=== PATIENT | male | born 1965 | race Caucasian/White ===

== ENCOUNTER → 2017-01-26 | Outpatient (CLI) | payer BC ==
[2014-10-07 16:58] VITALS: BP 118/65
[~2017-01-26] MED LIST: CARV3.12 PO; CRESTOR40 MG PO; HYDR15SO4 PO; LISI2.5T PO; [UNRECOGNIZED DRUG - CODE] MC
--- NOTE | 2017-01-26 14:48 | KCIC ---
PQRS STATEMENT One or more of the following individualized dose reduction techniques were utilized for this study:1.Automated exposure control.2.Adjustment of the mA and/orkVaccording to patient size.3.Use of iterative reconstruction technique CT ABDOMEN/PELVIS Indication: Reason For Study Reason: LT FLANK PAIN, HEMATURIA / Spl. Instructions: / History: Pain for 6 months. Microscopic hematuria. Comparison: None Technique: Multiple contiguous axial images were obtained through the abdomen and pelvis. Coronal reformations were created. Findings: There is no nephrolithiasis, ureteral calculus or hydroureteronephrosis. The urinary bladder is unremarkable. The heart size is normal. The lung bases are clear. Evaluation of the abdominal viscera is limited in the absence of IV contrast. The liver and spleen are normal in size. The gallbladder is nondistended. The pancreas, and adrenal glands are within normal limits. There is no abdominopelvic ascites. Abdominal aorta is normal in caliber. The bowel loops are normal in caliber. The appendix is normal. No destructive osseus lesions are identified. Impression: Negative for obstructive uropathy. Electronically signed by: Carlos Roque (Jan 26, 2017 14:47:36)
== END | disposition home or self-care (01) ==
LOC: KCIC CT 13:56
PROVIDERS: ATTEND Family Medicine
DX: R10.9 Unspecified abdominal pain (principal); R31.9 Hematuria, unspecified
CPT/HCPCS: 74176

== ENCOUNTER → 2017-04-17 | Outpatient (CLI) | payer BC ==
[2014-10-07 16:58] VITALS: BP 118/65
[~2017-04-17] MED LIST changes: +DIAZEPAM 10 MG TABLET. ONE; +HYDROcodone/APAP 5/325MG 1 TAB TABLET ONE; +IOHEXOL 350 MG/ML 100 ML VIAL. ONE; +IOHEXOL 350 MG/ML 50 ML VIAL. ONE; +IV NORMAL SALINE 1000ML BAG 1,000 ML ONE; +LIDOCAINE 1% Multi-Dose 20 ML VIAL. ONE; +MIDAZOLAM HCL/PF 2 MG/2 ML VIAL. ONE; +fentaNYL PF VIAL 100 MCG/2 ML VIAL ONE
--- NOTE | 2017-04-17 16:24 | PCVCINTER ---
APPROVED REPORT Patient Details The patient is a 51 year-old male Event Personnel James Stephenson MD, Brendan Mitchell RT(R), Christine Roach RN, Calvin Pham RT(R)() Procedures Performed Left Heart Catheterization, Selective Right and Left Coronary Angiography Indication Dyspnea, Positive stress test, Pre-op clearance Risk Factors Obesity, Hypercholesterolemia, Last Creatanine 0.8Tobacco History (Current/Recent(w/in 1 year)) Procedure Narrative The patient was brought electively to the Cardiac Catheterization Laboratory and was prepped and draped in a sterile manner. The right femoral was infiltrated with 1% Lidocaine subcutaneous anesthesia. A 6 Fr sheath was inserted into the right femoral artery. Coronary angiography was performed using coronary diagnostic catheters. The right coronary system was accessed and visualized with a Diagnostic catheter. The left coronary system was accessed and visualized with a Diagnostic catheter. The left ventricle was accessed and visualized with a Diagnostic catheter. Left ventricular/Aortic Valve gradient assessed via catheter pullback. Left ventriculogram was performed in JONES projection. Closure device was deployed with a 6 Fr Mynx. Hemostasis was obtained with manual pressure following sheath removal without any complications. The patient tolerated the procedure well and there were no complications associated with the procedure. There was no hematoma. Coronary Angiography The patient's coronary anatomy is right dominant. [place] Artery Percent Stenosis Left Main: 0 % Prox LAD: 0 % Mid/Distal LAD: 0 % Circumflex: 0 % RCA: 0 % Ramus: 0 % Hemodynamics The aortic pressure is 129/77 mmHg with a mean of mmHg. The left ventricular pressure is 124/7 mmHg with a mean of mmHg. The left ventricular end diastolic pressure is 7 mmHg. There was no gradient across the aortic valve upon pullback. Conclusion 1. Normal global and regional systolic funcition. EF 65%. No mitral insufficiency. No aortic stenosis 2. Normal coronary vasculature. Right coronary dominant circulation
== END | disposition home or self-care (01) ==
LOC: PCVCINTER 10:58
PROVIDERS: ATTEND Nuclear Medicine Nuclear Cardiology
DX: R94.39 Abnormal result of other cardiovascular function study (principal); E66.9 Obesity, unspecified; E78.00 Pure hypercholesterolemia, unspecified; Z68.43 Body mass index [BMI] 50.0-59.9, adult; Z72.0 Tobacco use
CPT/HCPCS: 93458; 99152; 99153; C1760; C1769; C1894; J1644; J2250; J3010; J7030; Q9967

== ENCOUNTER → 2018-05-31 | Outpatient (CLI) | payer BC ==
[2018-01-21 17:18] VITALS: BP 114/55
[~2018-05-31] MED LIST changes: +ATOR40TA59 PO; -DIAZEPAM 10 MG TABLET. ONE; -HYDROcodone/APAP 5/325MG 1 TAB TABLET ONE; -IOHEXOL 350 MG/ML 100 ML VIAL. ONE; -IOHEXOL 350 MG/ML 50 ML VIAL. ONE; -IV NORMAL SALINE 1000ML BAG 1,000 ML ONE; -LIDOCAINE 1% Multi-Dose 20 ML VIAL. ONE; -MIDAZOLAM HCL/PF 2 MG/2 ML VIAL. ONE; +PANT20TA2 PO; +SACU1TAB7 PO; +SPIR50TA4 PO; -fentaNYL PF VIAL 100 MCG/2 ML VIAL ONE
--- NOTE | 2018-05-31 16:36 | CARD ---
MR#: [id number] Date of Study: 05/31/2018 Ordering Physician: JUANA WITT, Referring Physician: JUANA WITT Tech: Brandee Stark RDCS APPROVED REPORT EXAM: Two-dimensional and M-mode echocardiogram with Doppler and color Doppler. Other Information Quality : Fair Technically limited study due to breast implants INDICATION Cardiomyopathy Surgery/Intervention ICD/Pacemaker: 2D DIMENSIONS RVDd2.8 (2.9-3.5cm)Left Atrium(2D)3.6 (1.6-4.0cm) IVSd1.5 (0.7-1.1cm)Aortic Root(2D)2.8 (2.0-3.7cm) LVDd4.2 (3.9-5.9cm)LVOT Diameter2.1 (1.8-2.4cm) PWd1.2 (0.7-1.1cm)LVDs2.8 (2.5-4.0cm) FS (%) 30.0 %SV50.7 ml LVEF(%)60.0 (>50%) Aortic Valve AoV Peak Jamal.180.6cm/sAoV VTI30.8cm AO Peak GR.13.1mmHgLVOT Peak Jamal.129.3cm/s AO Mean GR.6mmHgAVA (VMAX)2.37cm2 LEESA (VTI)2.80cm2 Mitral Valve MV E Qeltbbnn03.5cm/sMV DECEL [id number] MV A Vpefupuz02.0cm/sE/A Ratio0.9 Tricuspid Valve TR P. Bsrnxtjb880br/sRAP [id number] TR Peak Gr.07kwHgPFJW41ybKt Pulmonary Vein S1 Keigivgx25.3cm/sD2 Kyrtrohj60.8cm/s LEFT VENTRICLE The left ventricle is normal size. There is mild concentric left ventricular hypertrophy. The left ve ntricular systolic function is normal and the ejection fraction is within normal range. The Ejection Fraction is 55-60%. There is normal LV segmental wall motion. Transmitral Doppler flow pattern is Gra de I-abnormal relaxation pattern. RIGHT VENTRICLE The right ventricle is normal size. The right ventricular systolic function is normal. There is a dev ice lead in the right ventricle. ATRIA The left atrium size is normal. The right atrium size is normal. A device lead is seen in the right a trium consistent with history. The interatrial septum is intact with no evidence for an atrial septal defect or patent foramen ovale as noted on 2-D or Doppler imaging. AORTIC VALVE The aortic valve is calcified but opens well. Doppler and Color Flow revealed no significant aortic r egurgitation. There is no significant aortic valvular stenosis. MITRAL VALVE The mitral valve is normal in structure and function. There is no evidence of mitral valve prolapse. There is no mitral valve stenosis. Doppler and Color-flow revealed trace mitral regurgitation. TRICUSPID VALVE The tricuspid valve is normal in structure and function. Doppler and Color Flow revealed trace tricus pid regurgitation. The PA pressure was estimated at 20 mmHg. There is no tricuspid valve stenosis. PULMONIC VALVE The pulmonic valve is not well visualized. Doppler and Color Flow revealed trace to mild pulmonic edmund vular regurgitation. There is no pulmonic valvular stenosis. GREAT VESSELS The aortic root is normal in size. The ascending aorta is normal in size. The IVC is normal in size a nd collapses <50% with inspiration. PERICARDIAL EFFUSION There is no evidence of significant pericardial effusion. Critical Notification Critical Value: No <Conclusion> The left ventricle is normal size. The left ventricular systolic function is normal. The Ejection Fraction is 55-60%. There is mild concentric left ventricular hypertrophy. There are device leads in the right atrium and right ventricle. There is no significant aortic valvular stenosis. Doppler and Color Flow revealed no significant aortic regurgitation. Doppler and Color-flow revealed trace mitral regurgitation. Doppler and Color Flow revealed trace tricuspid regurgitation. The PA pressure was estimated at 20 mmHg. Signed by : West Ruano MD Electronically Approved : 05/31/2018 16:35:18
== END | disposition home or self-care (01) ==
LOC: ECHO 13:53
PROVIDERS: ATTEND Internal Medicine Cardiovascular Disease
DX: I42.9 Cardiomyopathy, unspecified (principal); I11.0 Hypertensive heart disease with heart failure; I50.9 Heart failure, unspecified; E78.5 Hyperlipidemia, unspecified; E78.00 Pure hypercholesterolemia, unspecified; F17.210 Nicotine dependence, cigarettes, uncomplicated; K21.9 Gastro-esophageal reflux disease without esophagitis; Z95.810 Presence of automatic (implantable) cardiac defibrillator; Z68.35 Body mass index [BMI] 35.0-35.9, adult; Z82.49 Family history of ischemic heart disease and other diseases of the circulatory system
CPT/HCPCS: 93306